=== PATIENT | female | born 1970 | race Caucasian/White ===

== ENCOUNTER 2016-06-19 10:03 | Emergency (ER) | payer OTHER ==
[~2016-06-19] VITALS: Ht 165.1 cm; Wt 72.6 kg
[2016-06-19 10:09] VITALS: BP_SYST 110
--- NOTE | 2016-06-19 10:17 | NUR ---
Patient to ER bed 08 to gown for evaluation. Side rails up. Report given to CHANCE Amaya.
--- NOTE | 2016-06-19 10:25 | NUR ---
Dr. Murcai at bedside for evaluation
[2016-06-19 10:42] LABS: BILIRUBIN,URINE NEGATIVE (NEGATIVE); BLOOD, URINE NEGATIVE (NEGATIVE); CLARITY/URINE CLEAR (CLEAR); COLOR,URINE YELLOW (YELLOW); GLUCOSE,URINE NEGATIVE (NEGATIVE); KETONES,URINE NEGATIVE (NEGATIVE); LEUKOCYTE ESTERASE ,URINE NEGATIVE (NEGATIVE); NITRITE, URINE NEGATIVE (NEGATIVE); PH,URINE 6.5 (5.0-8.0); PROTEIN URINE NEGATIVE (NEGATIVE); UROBILINOGEN,URINE 0.2 (0.2-1.0)
--- NOTE | 2016-06-19 10:51 | NUR ---
LABS DRAWN BY FINANCIAL SERVICES ASSISTANT
[2016-06-19 11:02] LABS: BASOPHILS % (AUTO) 0.2 % (0.0-2.0); HEMATOCRIT 31.8 % (36-48); HEMOGLOBIN 10.2 g/dL (12.0-16.0); LYMPHOCYTES # (AUTO) 1.2 K/uL (1.0-5.5); LYMPHOCYTES % (AUTO) 8.8 % (20.5-51.5); MEAN CORPUSCULAR HEMOGLOBIN 24 pg (27-31); MEAN CORPUSCULAR HGB CONC 32 % (32-36); MEAN CORPUSCULAR VOLUME 73 fL (79.0-98.0); MONOCYTES # (AUTO) 0.9 K/uL (0.0-1.0); MONOCYTES % (AUTO) 6.2 % (1.7-9.3); NEUTROPHILS # (AUTO) 11.9 K/uL (1.8-7.7); NEUTROPHILS % (AUTO) 84.8 % (40.0-70.0); PLATELET COUNT (AUTO) 482 K/uL (130-430); RED BLOOD CELL COUNT(AUTO) 4.35 MIL/uL (4.2-6.2); RED CELL DISTRIBUTION WIDTH 19.6 % (9.0-15.0)
[2016-06-19 11:20] LABS: CALCIUM 8.6 mg/dL (8.4-11.0); CREATININE 1.05 mg/dL (0.55-1.30); POTASSIUM 4.4 mmol/L (3.5-5.1)
--- NOTE | 2016-06-19 11:30 | NUR ---
ASSUMED PTVanessa DAVIS, RESTING IN BED STATES NO PAIN VERBALIZES COMFORT
[2016-06-19 11:35] LABS: ALBUMIN 2.7 g/dL (3.4-4.8); TOTAL BILIRUBIN 0.2 mg/dL (0.0-1.0); TOTAL PROTEIN, SERUM 6.3 g/dL (6.4-8.3)
[2016-06-19 12:05] VITALS: BP_SYST 120
--- NOTE | 2016-06-19 12:05 | NUR ---
Patient given written and verbal discharge instructions and verbalizes understanding. ER MD DR. HELLER discussed with patient the results and treatment provided. Patient in stable condition. ID arm band removed. NO Rx given. Patient educated on pain management and to follow up with PMD. Pain Scale 0/10 Opportunity for questions provided and answered.
== END 2016-06-19 12:05 | disposition home or self-care (01) ==
LOC: SED 10:03
DX: R53.1 Weakness (principal)
CPT/HCPCS: 36415; 80053; 81003; 81025; 84443-TC; 84702-TC; 85025; 99284

== ENCOUNTER 2022-06-07 14:07 | Emergency (ER) | payer OTHER ==
[~2022-06-07] VITALS: Ht 170.2 cm; Wt 76.2 kg
[2022-06-07] MEDS ORDERED: DIPHTH,PERTUSS(ACELL),TET VAC 0.5 ML VIAL (Tdap) I.M. ONE ×2 (15:00→20:06)
[2022-06-07] MEDS ORDERED: IBUPROFEN 800 MG TABLET PO ONE ×2 (15:00→20:15)
[2022-06-07 15:08] VITALS: BP_SYST 151
[2022-06-07] MEDS ORDERED: BACITRACIN 1 GM OINT TP ONE (18:58)
[2022-06-07] MEDS ORDERED: IBUPROFEN 800 MG TABLET ONE (20:05)
[2022-06-07] MEDS ORDERED: cephALEXin 500 MG CAPSULE ONE (20:06)
[2022-06-07] MEDS ORDERED: cephALEXin 500 MG CAPSULE PO ONE (20:15)
[2022-06-07] MEDS ORDERED: CEPH-548 PO (20:18)
[2022-06-07] MEDS ORDERED: IBUP-1971 PO (20:18)
[2022-06-07 20:27] VITALS: BP_SYST 151
== END 2022-06-07 20:27 | disposition home or self-care (01) ==
LOC: SED 14:07
DX: S61.210A Laceration without foreign body of right index finger without damage to nail, initial encounter (principal); B34.9 Viral infection, unspecified; Z79.899 Other long term (current) drug therapy; Z20.822 Contact with and (suspected) exposure to COVID-19; W26.0XXA Contact with knife, initial encounter; Y93.89 Activity, other specified; Y92.89 Other specified places as the place of occurrence of the external cause; Y99.8 Other external cause status
CPT/HCPCS: 36415; 71045; 84443; 90715; 93005; 99285

== ENCOUNTER 2023-09-15 16:46 | Emergency (ER) | payer OTHER, MEDICAID ==
[~2023-09-15] VITALS: Ht 165.1 cm; Wt 69.4 kg
[~2023-09-15 16:46] MED LIST: CEPH-548 PO; IBUP-1971 PO
[2023-09-15 17:06] VITALS: BP_SYST 141; PULSE 65; RESP 17; TEMP 98.1; O2SAT 99
[2023-09-15] MEDS ORDERED: IBUP-1969 PO (18:24)
[2023-09-15] MEDS: KETOROLAC TROMETHAMINE 30 MG VIAL IM ONE (18:57)
== END 2023-09-15 19:20 | disposition home or self-care (01) ==
LOC: SED 16:46
DX: S43.402A Unspecified sprain of left shoulder joint, initial encounter (principal); S16.1XXA Strain of muscle, fascia and tendon at neck level, initial encounter; W01.0XXA Fall on same level from slipping, tripping and stumbling without subsequent striking against object, initial encounter; Y93.89 Activity, other specified; Y92.89 Other specified places as the place of occurrence of the external cause; Y99.8 Other external cause status
CPT/HCPCS: 99285; 70450; 73030; 72125; 96372; J1885